=== PATIENT | female | born 1955 | race Caucasian/White ===

== ENCOUNTER → 2016-06-24 | Outpatient (CLI) | payer OTHER ==
[~2016-06-24] MED LIST: ACCUNEB DP0.63 MG/3 IH; ATROVENT SOLN.2.5 ML IH; CHANTIX0.5 MG PO; CHANTIX1 MG PO; COLACE-DPS100 MG PO; DELTASONE DPS10 MG PO; DELTASONE DPS20 MG PO; DIFLUCAN DPS150 MG PO; DULERA 200/58.8 GM IH; DUONEB DPS3 ML IH; DYCYCLOMINE PO; FLONASE 0.05% D16 GM NS; FOLVITE-DPS1 MG PO; HYDROCODON-ACE1 EAC6 PO; KLOR-CON M2020 ME1 PO; LEVAQUIN DPS500 MG PO; MAALOX DPS30 ML PO; MEGACE DPS40 MG/ML PO; MEGACE DPS800 MG/20 PO; MORPHINE SULFAT60 M1 PO; MORPHINE SULFAT60 M3 PO; MS CONTIN DPS60 MG PO; MUCINEX600 MG PO; NEURONTIN DPS300 MG PO; NICODERM CQ1 EAC1 TD; NICODERM CQ1 EAC2 TD; NORVASC DPS10 MG PO; NYSTATIN100000 UNI PO; OMNICEF DPS300 MG PO; OXY-CONTIN10 MG PO; PERCOCET 10 DPS1 TAB PO; PROAIR RESPICL90 MCG IH; PROTONIX40 MG PO; PROVENTIL HFA6.7 GM IH; QVAR8.7 GM IH; TYLENOL DPS325 MG PO; XANAX DPS0.25 MG PO
== END | disposition home or self-care (01) ==
LOC: RAD.S 07:56
DX: C34.90 Malignant neoplasm of unspecified part of unspecified bronchus or lung (principal); J98.4 Other disorders of lung; J98.11 Atelectasis; Z98.890 Other specified postprocedural states

== ENCOUNTER → 2016-06-27 | Outpatient (CLI) | payer OTHER | END | disposition home or self-care (01) | LOC: RAD.S 13:50 | PROC: 3E0 Administration, Physiological Systems and Anatomical Regions, Introduction (ICD-10-PCS; principal; 2016-06-27) | DX: C34.11 Malignant neoplasm of upper lobe, right bronchus or lung (principal); D50.9 Iron deficiency anemia, unspecified ==

== ENCOUNTER 2016-07-24 09:44 | Inpatient (IN) | payer OTHER ==
[~2016-07-24] VITALS: Ht 154.9 cm; Wt 40.6 kg
--- NOTE | 2016-07-24 21:01 | NUR ---
PT HAS INFUSAPORT WITH NS AT 100CC/HR RUNNING. NO BLOOD RETURN CAN BE OBTAINED FROM PORT. UPON INVESTIGATION SHE HAD FLEUROSCOPY DONE ON 06/27/16 TO DETERMINE IF PORT WAS IN THE CORRECT LOCATION AND THE IMPRESSION ON REPORT STATES THAT THE INFUSAPORT IS PATENT
[2016-07-28] MEDS ORDERED: XANAX DPS0.25 MG PO (16:58)
[2016-07-28] MEDS ORDERED: MORPHINE SULFAT60 M1 PO (16:58)
[2016-07-28] MEDS ORDERED: FOLVITE-DPS1 MG PO (16:59)
[2016-07-28] MEDS ORDERED: PERCOCET 10 DPS1 TAB PO (16:59)
[2016-07-28] MEDS ORDERED: NORVASC DPS10 MG PO (17:00)
[2016-07-28] MEDS ORDERED: PROTONIX40 MG PO (17:00)
[2016-07-28] MEDS ORDERED: MEGACE DPS40 MG/ML PO (17:00)
[2016-07-28] MEDS ORDERED: NEURONTIN DPS300 MG PO (17:00)
[2016-07-28] MEDS ORDERED: ACCUNEB DP0.63 MG/3 IH (17:03)
[2016-07-28] MEDS ORDERED: ATROVENT SOLN.2.5 ML IH (17:04)
[2016-07-28] MEDS ORDERED: NICODERM CQ1 EAC1 TD (17:05)
[2016-07-28] MEDS ORDERED: TYLENOL DPS325 MG PO (17:05)
[2016-07-28] MEDS ORDERED: KLOR-CON M2020 ME1 PO (17:05)
[2016-07-28] MEDS ORDERED: DELTASONE DPS10 MG PO (17:06)
[2016-07-28] MEDS ORDERED: LEVAQUIN DPS500 MG PO (17:06)
[2016-07-28] MEDS ORDERED: DIFLUCAN DPS150 MG PO (17:07)
[2016-07-28] MEDS ORDERED: QVAR8.7 GM IH (17:07)
--- NOTE | 2016-07-29 15:11 | CO ---
ADMIT: 07/24/2016 RM/LOC: [facility] MR#: [id number] 2620 [facility] [address] [place] [phone] SADE ARRIAZA [address] [id number] Consultation SEX: F AGE: 60 : 1955 DATE OF CONSULTATION: 07/25/2016 ATTENDING PHYSICIAN: Liv Banegas CONSULTING PHYSICIAN: Minnie Manuel APRN TIME IN: 0905 hours. TIME OUT: 0945 hours. REASON FOR CONSULTATION: Supportive care consultation was requested by Dr. Boo for discussion of goals for care. HISTORY OF PRESENT ILLNESS: Sade is a delightful 60-year-old female with the unfortunate history of lung cancer that was diagnosed in June of 2015. She underwent a right upper lobe lobectomy on September 07, 2015 that showed invasive poorly differentiated adenocarcinoma. She did have positive parenchymal, parietal, pleural, and chest wall margins. She has undergone chemotherapy and radiation and currently is at a point where she follows up with Oncology every few months for imaging. She had been evaluated in her primary care provider's office last week due to increasing respiratory symptoms. She was found to have pneumonia and was started on antibiotics, however she worsened, prompting her presentation to the emergency room on July 24. CT of the chest was done that showed the right pneumonia with collapsed lung as well as enlarged lymph nodes in the mediastinum. She also was shown to have severe emphysema. Due to her complexities, supportive care consultation was requested to discuss goals for care. In terms of advanced directives, the patient is a DNR status at the time of my assessment. She has not completed any sort of advanced directive paperwork. She reports that her significant other, Darren Martinez, his phone number is and [phone] as well as her daughter Gracie Garcia whose phone are the people, who are to make medical decisions for her in the event that she cannot make her own. Symptomatically, the patient reports that she is short of breath at times. Overall, she denies any other complaints. She states that her appetite is not good. She does appear fairly weak and debilitated. PAST MEDICAL HISTORY: COPD with ongoing tobacco abuse, lung cancer, osteoporosis, essential hypertension, generalized anxiety disorder, GERD, chronic pain, and nicotine dependence. ALLERGIES: THE PATIENT IS ALLERGIC TO TRAMADOL. CURRENT MEDICATIONS: Please see the patient's MAR for specific routes and dosages. Her current medications are as follows: 1. Potassium chloride. 2. Norvasc. ADMIT: 07/24/2016 RM/LOC: [facility] MR#: [id number] [address] [address] SADE ARRIAZA [address] [place] [address] Consultation SEX: F AGE: 60 : 1955 3. Protonix. 4. Megace. 5. Folvite. 6. Nitro drip. 7. Heparin. 8. Neurontin. 9. MS Contin. 10.Zosyn. 11.Atrovent. 12.Proventil. 13.Percocet. 14.Xanax. 15.Habitrol. 16.Lovenox. 17.Levaquin. 18.Maalox. 19.Tylenol. 20.Colace. 21.Nitrostat. 22.Lopressor. 23.Pulmicort. 24.Solu-Medrol. SOCIAL HISTORY: The patient lives with her significant other. They have been together around 14 years. She does not work currently. 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 She does drink a couple drinks a day of alcohol. She continues to use tobacco. FAMILY HISTORY: Reviewed and noncontributory. FUNCTIONAL REVIEW: Prior to her hospital stay, she was at home independent. She could ambulate. Her intake was normal to reduced. Her palliative performance scale prior to admission was around 80%. Currently, she is mostly sitting, but can ambulate. She is needing occasional assistance with ADLs. Her intake is reduced. Her palliative performance scale currently is around 50% to 60%. REVIEW OF SYSTEMS: A 10-point review of systems was completed and other than those pertinent positives and negatives mentioned the HPI is negative. PHYSICAL EXAMINATION: GENERAL: The patient is examined in the chair. She is in no acute distress. VITAL SIGNS: Temperature 96.7, pulse 79, respirations 20, blood pressure 122/66, and oxygen 95% on 1 L per nasal cannula. HEENT: Head is normocephalic. Pupils are 3 mm and brisk. Oral mucosa is pink and moist with fair dentition. NECK: Supple. RESPIRATORY: Respirations are equal and nonlabored. ADMIT: 07/24/2016 RM/LOC: [facility] MR#: [id number] [address] [place] [phone] SADE ARRIAZA [address] [place] [address] Consultation SEX: F AGE: 60 : 1955 LUNGS: Slightly course over the right lung field and diminished in the bases on the left. CARDIOVASCULAR: Rate and rhythm regular without murmurs, rubs, or gallops. No edema noted. GASTROINTESTINAL: Soft and nontender. Bowel sounds are positive. MUSCULOSKELETAL: Generalized weakness. No obvious joint deformities. NEUROLOGIC: Alert and oriented x3. She will follow commands. INTEGUMENTARY: Skin turgor is fair. No obvious rashes or wounds noted. PSYCHIATRIC: Calm and cooperative. No agitation or delirium noted. DIAGNOSTIC DATA: Sodium 134, potassium 3.3, BUN 13, creatinine 0.4, total protein 8.2, and albumin 2.7. WBC is 15.4, hemoglobin 8.8, hematocrit 27.3, and platelets are 717. IMPRESSION: 1. Physical debility. 2. Fatigue. 3. Malaise. 4. Moderate protein calorie malnutrition. 5. Weight loss. 6. Cachexia. 7. Right upper lobe pneumonia. 8. Chronic obstructive pulmonary disease. 9. Palliative care. 10.The patient is a DNR/DNI. PLAN OF TREATMENT: 1. I was able to meet with the patient at the bedside. She is alert and appropriate and able to participate in medical decision making. We reviewed her overall status and goals for the time ahead. She understands that she is acutely being treated for pneumonia and COPD exacerbation. In terms of her cancer, she states that she is scheduled to see Dr. Chaz kahn. She is very realistic regarding her diagnosis stating that "the cancer can come back at any time." She takes direction from Oncology in terms of her disease status and options in the time ahead. At this point, her immediate goal is to get through her current acute issues and get back home where she lives with her significant other. She does agree to ongoing discussions with supportive care in the time ahead pending her status. 2. We did review code status including the burden versus benefit of a full code status versus do not resuscitate/do not intubate status. At first, the patient does question as to whether or not, she want a breathing machine. If it were to come to that. We extensively reviewed the burden versus benefit and after discussion, she states that she would not want to go on a breathing machine even for short time period due to her overall status in terms of lung disease. She states that if she were to decompensate and it was her time to go that she would want to be kept comfortable and would forego any sort of aggressive resuscitative ADMIT: 07/24/2016 RM/LOC: [facility] MR#: [id number] [address] [address] SADE ARRIAZA [address] [place] [address] Consultation SEX: F AGE: 60 : 1955 measures including CPR defibrillation and intubation. She is comfortable with me writing the do not resuscitate/do not intubate order. She is able to verbalize in her own words back to me what her direction of DNR/DNI means. 3. In terms of advanced directives, the patient has not completed any sort of healthcare [id number]-[id number] or POLST form in the past. I did discuss healthcare iktdv-pl-wiuttyvw paperwork and she is agreeable to completing this today if possible. I will ask social work to assist with this, otherwise the Supportive Care nurse will likely return tomorrow and can assist with completion of this as well. I will also talk about a POLST form with her tomorrow and see if this is something that she would like to complete for the time ahead. We would like to thank Dr. Boo for the invitation to participate in this patient's care. Total consultation time was 40 minutes from 0905 hours to 0945 hours with 20 minutes from 0910 hours to 0930 hours spent [id number] with the patient discussing goals for care and providing counseling and support. We will continue to follow along in the care of this margarito patient. Minnie Manuel APRN/ laura JOB #: [id number] CC: Liv Banegas, Attending Physician Liv Banegas, Family Physician
--- NOTE | 2016-08-03 09:41 | ER ---
ADMIT: 07/24/2016 RM/LOC: 432 [facility] MR#: [id number] 2620 [facility] [address] [place] [id number] SADE ARRIAZA [address] [facility] [place] [address] Emergency Room Report SEX: F AGE: 60 : 1955 DATE: 07/24/2016 ADDENDUM: CHIEF COMPLAINT: Shortness of breath. HISTORY OF PRESENT ILLNESS: This is a 60-year-old, who said she has felt short of breath since Monday. She was seen at her doctor's office yesterday and was placed on antibiotic, steroid, inhalers. It sounds like she was even given injection of antibiotics, but she is not sure of the names. She comes today because she has not really ate or drank anything for the last 2 days. She is very weak, increased shortness of breath, just really could not do anything at home on her own. PAST MEDICAL HISTORY: Lung cancer with lobectomy, tubal ligation. MEDICATIONS: Unknown at this time. She is a poor historian. She does not know the pharmacy was closed. ALLERGIES: SHE BELIEVES TO TRAMADOL. I CALLED [facility]. THEY THINK BIAXIN. SOCIAL HISTORY: Denies any drug or alcohol use, but still smoke six cigarettes a day. FAMILY HISTORY: Noncontributory. REVIEW OF SYSTEMS: CONSTITUTIONAL: Denies any fevers, but has had some chills that she has been having to use electric blanket at home. CARDIOVASCULAR/RESPIRATORY: Denies any pain, but says she is extremely short of breath. Does have a cough. GI/: Denies any nausea, vomiting, diarrhea, or abdominal pain. All systems otherwise negative. PHYSICAL EXAMINATION: VITAL SIGNS: Blood pressure is 142/66, pulse 160, respirations 26, temperature is 97.6 tympanic, saturation of oxygen is 100% on 3 L which she normally uses. GENERAL APPEARANCE: The patient is in vlkp-kp-ircjxaye distress. Looks very malnourished. HEENT: Her pharynx is very dry. Her TMs are non-erythemic bilateral. NECK: Supple. HEART: Very tachycardic at a rate from 150s to 160s. LUNGS: Decreased bilateral. I am not able to hear really any wheezes or rhonchi. ABDOMEN: Soft and nontender. SKIN: She is very pale, almost ashened a little bit, but no rashes noted. NEURO/PSYCH: She is alert and oriented x3. Mood and affect normal. ADMIT: 07/24/2016 RM/LOC: 432 [facility] MR#: [id number] [address] [address] SADE ARRIAZA [address] [place] [address] Emergency Room Report SEX: F AGE: 60 : 1955 COURSE IN THE EMERGENCY ROOM: Sepsis protocol was ordered with the fluids, and Zosyn was started down here in the emergency room. At this time, CTA is pending of her chest. I will call Dr. Boo with those results. Dr. Boo was contacted. He came down to the ER at 1155 hours and admitted the patient. LABORATORY DATA: Results from labs: EKG showed a rate of 153 at sinus tach. No ST elevation or depression. Urine was normal except for 1+ ketones, 1+ protein. Her ABGs showed a pH of 7.45, pCO2 was 28.7, pO2 is 59. CBC is normal except for white count of 26.9, hemoglobin 11.6, platelets 860. Lactic acid is 1.9. CMP is normal except for sodium 131, potassium 3.3, chloride 93, BUN elevated at 27, but creatinine is normal at 0.6, glucose 135, albumin low at 2.7.. Cardiac enzymes are normal. Procalcitonin is elevated at 4.39. PTT and INR are normal. Chest x-ray that was over-read by Dr. Joseph, questionable infiltrate on the right side. CLINICAL IMPRESSION: 1. Sepsis. 2. Right-sided pneumonia. 3. Tachycardia. 4. Dehydration. CTA pending at this time. PE is not ruled out. DISPOSITION: She is stable at admit. YASMANY Cota / Twan Joseph MD / laura JOB #: [id number] CC: Liv Banegas MD, Attending Physician Liv Banegas MD, Family Physician
--- NOTE | 2016-08-04 09:47 | DS ---
ADMIT: 07/24/2016 RM/LOC: 432 [facility] MR#: [id number] 2620 [facility] [address] [place] [phone] SADE ARRIAZA [address] [facility] [place] [address] Discharge Summary SEX: F AGE: 60 : 1955 ADMISSION DATE: 07/24/2016 DISCHARGE DATE: 07/27/2016 FINAL DIAGNOSES: 1. Right upper lobe pneumonia in a patient with structural lung disease secondary to lobectomy for cancer and secondary to COPD (chronic obstructive pulmonary disease). 2. Chronic weakness and weight loss related to COPD (chronic obstructive pulmonary disease) and cancer. 3. Chronic hypertension. 4. Gastroesophageal reflux. HOSPITAL COURSE: Sade came in with hypoxia and shortness of breath and was admitted and found to have right-sided pneumonia. CTA showed no pulmonary emboli. She was started on Zosyn and Levaquin as well as IV steroids and pulmonary toilet. Lovenox was used for VTE prophylaxis. We continued her usual 3 L of O2. Over the course of 48 hours, she had pretty dramatic improvement. She was admitted on 07/24/2016. By 07/26/2016, she was feeling much better with more tolerance of activity. She was up walking in the halls and on 2 L of O2 her saturations remained about 89-90%. Supportive Care did see her and she wants DNR/DNI status, but wants to continue aggressive treatments for her infections and medical treatments as she can tolerate for her cancer. She will be dismissed home on Levaquin 500 mg daily for 5 more days. She also had yeast on the sputum culture and some normal dangelo. Blood cultures and urine cultures were all negative. DISCHARGE MEDICATIONS: 1. Levaquin 500 mg daily for 5 more days. 2. Prednisone 40 mg starting on 07/28 and 07/29 and then 20 mg daily for 5 days, then 10 mg daily for 5 days, then stop. 3. Fluconazole 150 mg to give one dose today before she leaves and another dose on 07/29, 07/31, and 08/02 and then stop. 4. She will continue her O2 at 2-3 L nasal cannula. She can leave it at 2 when she is at rest but she can also turn it up to 3 if needed. When she is up ambulating she should wear 3 L. 5. Folvite 1 mg daily. 6. Potassium 20 mEq b.i.d. 7. Megace 800 mg per 20 mL and take 20 mL daily. ADMIT: 07/24/2016 RM/LOC: 432 [facility] MR#: [id number] [address] [address] SADE ARRIAZA [address] [place] [address] Discharge Summary SEX: F AGE: 60 : 1955 8. MS Contin 60 mg every 8 hours. 9. Neurontin 300 mg t.i.d. 10.Norvasc 10 mg daily. 11.Protonix 40 mg daily. 12.Habitrol 7 mg. If she starts to smoke again she needs to take that off and she is aware. 13.She also has Percocet, Tylenol and Xanax as needed. 14.She will use her Atrovent every 8 hours for the next five days and then back down to p.r.n. DISCHARGE INSTRUCTIONS: I will see her back in about 7-14 days and she has an appointment with Oncology on August 08 that is already set. Liv Banegas MD/ anna JOB #: [id number] CC: Liv Banegas MD, Attending Physician Liv Banegas MD, Family Physician
--- NOTE | 2016-08-09 08:26 | HP ---
ADMIT: 07/24/2016 RM/LOC: 432 [facility] MR#: [id number] [address] [address] SADE ARRIAZA [address] [place] [address] [place] [address] History and Physical SEX: F AGE: 60 : 1955 DATE OF SERVICE: CHIEF COMPLAINT: Increasing shortness of breath. HISTORY OF PRESENT ILLNESS: Sade is a 60-year-old female, follows with Dr. Banegas in our clinic, established care in June last year, presents to the Emergency Department with complaints of increased shortness of breath and fatigue. The patient was actually just seen in our clinic yesterday by Lucia Nelson, diagnosed with pneumonia. Given Rocephin and sent home. The patient feels that over the last 24 hours, she has worsened, therefore she presented to the Emergency Department for further workup and management here. In regard to the ER course, she was found to be hypoxic. Started on oxygen. The patient does have a history of lung cancer. She did have a CT which showed no PE, but did show pneumonia. Also found to be tachycardic with heart rate in the 140s to 150s. She was given diltiazem to try to help slow that down. We were asked to admit the patient for further workup and management of her COPD exacerbation, pneumonia. The patient not found to be septic at this time. PAST MEDICAL HISTORY: Includes: 1. COPD with continued smoking. 2. Lung cancer with adenocarcinoma of the lung, diagnosed in June 2015 with a right upper lobe lesion. On 09/07/2015, she had a right upper lobe lobectomy which showed invasive poorly differentiated adenocarcinoma grade 3 with pT3, pN0 stage IIB with positive parenchymal and parietal pleural and chest wall margins. She has undergone chemo and radiation. 3. Osteoporosis. 4. Essential hypertension. 5. Generalized anxiety disorder. 6. Gastroesophageal reflux disease. 7. Chronic pain. 8. Nicotine dependence. MEDICATIONS: Include; 1. Amlodipine. 2. Bentyl. 3. MS Contin. 4. Neurontin. 5. Pantoprazole. 6. Percocet. 7. Ventolin. ALLERGIES: TRAMADOL. PAST SURGICAL HISTORY: 1. Tonsillectomy. 2. Tubal ligation. 3. Right lobectomy as noted above. ADMIT: 07/24/2016 RM/LOC: 432 [facility] MR#: [id number] [address] [facility] [address] [place] [phone] SADE ARRIAZA [address] [place] [address] History and Physical SEX: F AGE: 60 : 1955 FAMILY HISTORY: Noncontributory. SOCIAL HISTORY: The patient continues to smoke about half pack per day. Garrett is her significant other for 14 years and will make medical decisions if she is unable. She does not work any longer. 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 Drinks about two drinks per day. REVIEW OF SYSTEMS: A 10-point review of systems obtained, per HPI otherwise negative. PHYSICAL EXAMINATION: VITAL SIGNS: Blood pressure 149/81, pulse 151, 85% on 3 L, respirations 22. GENERAL: Alert and oriented x3. No acute distress. Appears a little anxious. Mild increased work of breathing. HEENT: Pupils equal, round, and reactive. Extraocular muscles intact. Throat clear. Trachea midline. No carotid bruits. HEART: Tachycardic. LUNGS: Decreased breath sounds bilaterally with few scattered wheezes. ABDOMEN: Soft, nontender, and nondistended. No organomegaly. EXTREMITIES: Without any significant edema. NEUROLOGIC: Intact. No focal deficits. In general, she does appear cachectic. LABORATORY DATA: Blood cultures obtained, pending. White blood count 26.9, hemoglobin 11.6, platelet count 60, segs 85%, bands 8%. CMP; sodium 131, potassium 3.3, glucose 135, creatinine 0.6. AST and ALT are normal. Magnesium 2.3. Cardiac enzymes are negative x3 sets. Lactic acid normal at 1.9. Procalcitonin 4.39. Arterial blood gas shows pH 7.4, pCO2 of 28.7, pO2 of 59. Urinalysis 1+ protein, 1+ ketones, otherwise normal. Chest x-ray shows right upper lobe opacities. Postoperative changes. ASSESSMENT: A 60-year-old female with. 1. Acute respiratory distress with hypoxia. 2. Right-sided pneumonia, community acquired. 3. Sepsis. 4. Hypoxemia. 5. Tachycardia, likely secondary to infection. 6. Chronic obstructive pulmonary disease exacerbation. ADMIT: 07/24/2016 RM/LOC: 432 [facility] MR#: [id number] [address] [address] SADE ARRIAZA [address] [place] [address] History and Physical SEX: F AGE: 60 : 1955 7. History of lung cancer, post resection radiation chemotherapy, following with Oncology. 8. Nicotine dependence with continued nicotine use. 9. Hypertension. PLAN: We will admit patient to PCU status. Sepsis protocol. Antibiotics, fluids, pulmonary support. Monitor closely. Progresses may need to consider in the patient. At this point, she seems stable. Greater than 35 minutes spent with overall patient care. Greater than 25 minutes of hqhb-fu-oawy contact. The patient is in stable condition, but slightly critical. Alessandro Boo MD/ laura JOB #: [id number] CC: Liv Banegas, Attending Physician Liv Banegas, Family Physician
[2016-09-01] MEDS ORDERED: DUONEB DPS3 ML IH (11:39)
[2016-09-01] MEDS ORDERED: DYCYCLOMINE PO (11:43)
[2016-09-01] MEDS ORDERED: CHANTIX0.5 MG PO (11:44)
[2016-10-10] MEDS ORDERED: QVAR8.7 GM IH (17:18)
[2016-10-10] MEDS ORDERED: MEGACE DPS40 MG/ML PO (17:18)
[2016-10-10] MEDS ORDERED: NORVASC DPS10 MG PO (17:19)
[2016-10-10] MEDS ORDERED: NEURONTIN DPS300 MG PO (17:19)
[2016-10-10] MEDS ORDERED: PERCOCET 10 DPS1 TAB PO (17:19)
[2016-10-10] MEDS ORDERED: KLOR-CON M2020 ME1 PO (17:20)
[2016-10-10] MEDS ORDERED: PROTONIX40 MG PO (17:20)
[2016-10-10] MEDS ORDERED: FOLVITE-DPS1 MG PO (17:21)
[2016-10-10] MEDS ORDERED: XANAX DPS0.25 MG PO (17:21)
[2016-10-10] MEDS ORDERED: MORPHINE SULFAT60 M3 PO (17:22)
[2016-10-10] MEDS ORDERED: NICODERM CQ1 EAC2 TD (17:23)
[2016-10-10] MEDS ORDERED: PROVENTIL HFA6.7 GM IH (17:23)
[2016-10-10] MEDS ORDERED: CHANTIX1 MG PO (17:23)
[2016-10-10] MEDS ORDERED: OMNICEF DPS300 MG PO (17:24)
[2016-10-10] MEDS ORDERED: DELTASONE DPS10 MG PO (17:24)
[2016-10-10] MEDS ORDERED: COLACE-DPS100 MG PO (17:25)
[2016-10-10] MEDS ORDERED: DUONEB DPS3 ML IH (17:25)
[2016-10-10] MEDS ORDERED: MAALOX DPS30 ML PO (17:25)
[2016-10-10] MEDS ORDERED: TYLENOL DPS325 MG PO (17:26)
[2016-10-16] MEDS ORDERED: MEGACE DPS800 MG/20 PO (11:30)
[2016-10-16] MEDS ORDERED: QVAR8.7 GM IH (11:30)
[2016-10-16] MEDS ORDERED: OXY-CONTIN10 MG PO (11:31)
[2016-10-16] MEDS ORDERED: NORVASC DPS10 MG PO (11:31)
[2016-10-16] MEDS ORDERED: NEURONTIN DPS300 MG PO (11:32)
[2016-10-16] MEDS ORDERED: FOLVITE-DPS1 MG PO (11:32)
[2016-10-16] MEDS ORDERED: KLOR-CON M2020 ME1 PO (11:32)
[2016-10-16] MEDS ORDERED: PROTONIX40 MG PO (11:32)
[2016-10-16] MEDS ORDERED: XANAX DPS0.25 MG PO (11:32)
[2016-10-16] MEDS ORDERED: PROAIR RESPICL90 MCG IH (11:33)
[2016-10-16] MEDS ORDERED: CHANTIX1 MG PO (11:33)
[2016-10-16] MEDS ORDERED: MS CONTIN DPS60 MG PO (11:33)
[2016-10-16] MEDS ORDERED: NICODERM CQ1 EAC1 TD (11:34)
[2016-10-16] MEDS ORDERED: OMNICEF DPS300 MG PO (11:34)
[2016-10-16] MEDS ORDERED: DUONEB DPS3 ML IH (11:35)
[2016-10-16] MEDS ORDERED: MAALOX DPS30 ML PO (11:35)
[2016-10-16] MEDS ORDERED: COLACE-DPS100 MG PO (11:35)
[2016-10-16] MEDS ORDERED: TYLENOL DPS325 MG PO (11:36)
[2016-10-16] MEDS ORDERED: DELTASONE DPS10 MG PO (11:37)
[2016-10-16] MEDS ORDERED: DELTASONE DPS20 MG PO (11:37)
[2016-10-16] MEDS ORDERED: LEVAQUIN DPS500 MG PO (11:37)
[2016-10-16] MEDS ORDERED: DULERA 200/58.8 GM IH (11:38)
[2016-12-17] MEDS ORDERED: DUONEB DPS3 ML IH (15:27)
[2016-12-17] MEDS ORDERED: MUCINEX600 MG PO (15:31)
[2016-12-17] MEDS ORDERED: HYDROCODON-ACE1 EAC6 PO (15:31)
[2016-12-17] MEDS ORDERED: NYSTATIN100000 UNI PO (15:33)
[2016-12-21] MEDS ORDERED: FLONASE 0.05% D16 GM NS (06:53)
== END 2016-07-27 12:10 | disposition home or self-care (01) | DRG 190 ==
LOC: ER 09:44 → 4PCU 11:55
PROVIDERS: ADMIT Family Medicine
DX: J44.0 Chronic obstructive pulmonary disease with (acute) lower respiratory infection (principal); J18.9 Pneumonia, unspecified organism; J96.01 Acute respiratory failure with hypoxia; B37.89 Other sites of candidiasis; E44.0 Moderate protein-calorie malnutrition; C34.91 Malignant neoplasm of unspecified part of right bronchus or lung; E87.6 Hypokalemia; J44.1 Chronic obstructive pulmonary disease with (acute) exacerbation; E86.0 Dehydration; F17.210 Nicotine dependence, cigarettes, uncomplicated; M81.0 Age-related osteoporosis without current pathological fracture; I10 Essential (primary) hypertension; F41.1 Generalized anxiety disorder; K21.9 Gastro-esophageal reflux disease without esophagitis; G89.29 Other chronic pain; Z66 Do not resuscitate

== ENCOUNTER → 2016-08-08 | Outpatient (CLI) | payer OTHER | END | disposition home or self-care (01) | LOC: PTH.S 08:54 | DX: C34.11 Malignant neoplasm of upper lobe, right bronchus or lung (principal); D50.9 Iron deficiency anemia, unspecified; J18.9 Pneumonia, unspecified organism; Z98.890 Other specified postprocedural states ==

== ENCOUNTER 2016-08-28 09:19 | Inpatient (IN) | payer OTHER ==
[~2016-08-28] VITALS: Ht 152.4 cm; Wt 37.7 kg
[~2016-08-28 09:19] MED LIST changes: -CHANTIX0.5 MG PO; -CHANTIX1 MG PO; -COLACE-DPS100 MG PO; -DELTASONE DPS20 MG PO; -DULERA 200/58.8 GM IH; -DUONEB DPS3 ML IH; -DYCYCLOMINE PO; -FLONASE 0.05% D16 GM NS; -HYDROCODON-ACE1 EAC6 PO; -MAALOX DPS30 ML PO; -MEGACE DPS800 MG/20 PO; -MORPHINE SULFAT60 M3 PO; -MS CONTIN DPS60 MG PO; -MUCINEX600 MG PO; -NICODERM CQ1 EAC2 TD; -NYSTATIN100000 UNI PO; -OMNICEF DPS300 MG PO; -OXY-CONTIN10 MG PO; -PROAIR RESPICL90 MCG IH; -PROVENTIL HFA6.7 GM IH
--- NOTE | 2016-08-28 15:09 | ER ---
ADMIT: 08/28/2016 RM/LOC: ER [facility] MR#: [id number] 2620 [facility] [address] [place] [phone] ARRIAZASADE FITZGERALD [address] [facility] [place] [address] Emergency Room Report SEX: F AGE: 60 : 1955 DATE: 08/28/2016 ADDENDUM: This 60-year-old white female, has lung cancer, status post lobectomy and COPD, continues to smoke, coming in with tachycardia and more evidently more short of breath too. Chest x-ray appears to be a recurrence of her pneumonia. White count 14.8, hemoglobin is 8.7, lactic, however, is 0.4 so she is a pneumonia, rule out sepsis at this time. We follow the sepsis protocol. She did not need any fluids nor did she make criteria at this time for that. She received Zosyn and vanc here. CONDITION ON ADMISSION: Serious. I spoke with Dr. Boo. He will admit. Golden Frank MD/ laura JOB #: [id number] CC: Golden Frank MD, Attending Physician Liv Banegas MD, Family Physician
[2016-09-01] MEDS ORDERED: DUONEB DPS3 ML IH (11:39)
[2016-09-01] MEDS ORDERED: DYCYCLOMINE PO (11:43)
[2016-09-01] MEDS ORDERED: CHANTIX0.5 MG PO (11:44)
--- NOTE | 2016-09-05 08:14 | HP ---
ADMIT: 08/28/2016 RM/LOC: 424 [facility] MR#: [id number] [address] [address] SADE ARRIAZA [address] [place] [id number] History and Physical SEX: F AGE: 60 : 1955 DATE OF SERVICE: CHIEF COMPLAINT: Increasing shortness of breath. HISTORY OF PRESENT ILLNESS: Sade is a 60-year-old female, who normally follows with Dr. Banegas in our clinic, established care in June of last year, who presents to emergency department with complaints of increased shortness of breath and fatigue. The patient was admitted at the end of June earlier this year with pneumonia. The patient discharged after aggressive treatment pulmonary toilet. She states that this feels very similar. She is normally on 3 L oxygen, when she arrived to the emergency department, she was requiring 4 L. She just feels tired and very fatigued. She does have end- stage COPD. She continues to smoke. In regard to other ER course, she was found to be hypoxic. She does have a history of lung cancer. Chest x-ray appeared to be stable, but the ER physician felt that there may be start of a pneumonia. She was tachycardic, which is normal for her. She did not meet sepsis criteria. She was given IV Zosyn and vancomycin with her given recent hospitalization. PAST MEDICAL HISTORY: 1. COPD with continued smoking. 2. Lung cancer with adenocarcinoma of the lung, diagnosed in June 2015 with right upper lobe lesion. On 09/07/2015, she had a right upper lobe lobectomy, which showed invasive poorly differentiated adenocarcinoma grade 3 with pT3, pN0, stage IIB with positive parenchymal and parietal pleural and chest wall margins. She has undergone chemo and radiation. 3. Osteoporosis. 4. Essential hypertension. 5. Generalized anxiety disorder. 6. Gastroesophageal reflux. 7. Chronic pain. 8. Nicotine dependence. MEDICATIONS: Please refer hospital record. ALLERGIES: TRAMADOL. PAST SURGICAL HISTORY: Tonsillectomy, tubal ligation, right upper lobe lobectomy as noted above. FAMILY HISTORY: Noncontributory. SOCIAL HISTORY: The patient continues to smoke about half pack per day. Darren is a significant other of 14 years and would make medical decisions for her if she is unable. She no longer works. 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 Drinks about 2 drinks per day. REVIEW OF SYSTEMS: A 10-point review of systems obtained, per HPI otherwise ADMIT: 08/28/2016 RM/LOC: 424 [facility] MR#: [id number] 2620 [facility] [address] [place] [phone] SADE ARRIAZA [address] [place] [address] History and Physical SEX: F AGE: 60 : 1955 negative. PHYSICAL EXAMINATION: VITAL SIGNS: Blood pressure 135/63, pulse 80, respirations 18, temperature 97.3, she is 99% on 4 L. GENERAL: Alert and oriented x3. Does not appear toxic. Does not appear in acute distress. Does appear fatigued. She does appear cachectic. HEENT: Pupils equal, round, and reactive. Extraocular muscles intact. Throat clear. Trachea midline. HEART: Tachycardic. No murmurs. LUNGS: Decreased breath sounds bilaterally. Few scattered wheezes. ABDOMEN: Soft, nontender, and nondistended. No organomegaly. EXTREMITIES: No significant edema. NEUROLOGIC: Intact. No focal deficits. SKIN: No significant changes. LABORATORY DATA: White blood count slightly elevated at 14,800. Hemoglobin stable at 8.7. Platelet count elevated at 762. Blood cultures obtained pending. CMP shows a potassium of 3.6. Glucose 110. Inorganic phosphorus 2.1. Albumin 2.9. Magnesium 1.9. Cardiac enzymes negative. Her procalcitonin was 0.14. Lactic acid. 0.6. UA was hazy, 1+ ketones, otherwise negative. Chest x-ray over-read showed stable postoperative chest. ASSESSMENT: This is a 60-year-old female with: 1. Possible early healthcare acquired pneumonia. 2. Acute on chronic respiratory distress with hypoxia. 3. Hypoxemia. 4. Tachycardia, chronic secondary to chronic obstructive pulmonary disease. 5. Chronic obstructive pulmonary disease exacerbation. 6. Nicotine dependence. ADMIT: 08/28/2016 RM/LOC: 424 [facility] MR#: [id number] 2620 [facility] [address] [place] [phone] SADE ARRIAZA [address] [place] [phone] History and Physical SEX: F AGE: 60 : 1955 7. History of lung cancer post right upper lobe lobectomy, radiation chemotherapy. Follows with Oncology. 8. Hypertension. PLAN: We will admit the patient to telemetry. She may continue on antibiotics. Pulmonary support and aggressive pulmonary toilet. Monitor closely. Overall, long-term prognosis is very poor for this patient as her lungs are quite poor, and she continues to smoke. Lovenox for DVT prophylaxis. Dr. Banegas was in patient care in the morning. Alessandro Boo MD/ laura JOB #: [id number] CC: Liv Banegas, Attending Physician Liv Banegas, Family Physician
[2016-10-10] MEDS ORDERED: MEGACE DPS40 MG/ML PO (17:18)
[2016-10-10] MEDS ORDERED: QVAR8.7 GM IH (17:18)
[2016-10-10] MEDS ORDERED: PERCOCET 10 DPS1 TAB PO (17:19)
[2016-10-10] MEDS ORDERED: NEURONTIN DPS300 MG PO (17:19)
[2016-10-10] MEDS ORDERED: NORVASC DPS10 MG PO (17:19)
[2016-10-10] MEDS ORDERED: KLOR-CON M2020 ME1 PO (17:20)
[2016-10-10] MEDS ORDERED: PROTONIX40 MG PO (17:20)
[2016-10-10] MEDS ORDERED: FOLVITE-DPS1 MG PO (17:21)
[2016-10-10] MEDS ORDERED: XANAX DPS0.25 MG PO (17:21)
[2016-10-10] MEDS ORDERED: MORPHINE SULFAT60 M3 PO (17:22)
[2016-10-10] MEDS ORDERED: PROVENTIL HFA6.7 GM IH (17:23)
[2016-10-10] MEDS ORDERED: CHANTIX1 MG PO (17:23)
[2016-10-10] MEDS ORDERED: NICODERM CQ1 EAC2 TD (17:23)
[2016-10-10] MEDS ORDERED: DELTASONE DPS10 MG PO (17:24)
[2016-10-10] MEDS ORDERED: OMNICEF DPS300 MG PO (17:24)
[2016-10-10] MEDS ORDERED: MAALOX DPS30 ML PO (17:25)
[2016-10-10] MEDS ORDERED: DUONEB DPS3 ML IH (17:25)
[2016-10-10] MEDS ORDERED: COLACE-DPS100 MG PO (17:25)
[2016-10-10] MEDS ORDERED: TYLENOL DPS325 MG PO (17:26)
--- NOTE | 2016-10-13 07:54 | DS ---
ADMIT: 08/30/2016 RM/LOC: 424 [facility] MR#: [id number] 2620 [facility] [address] [place] [phone] SADE ARRIAZA [address] [place] [address] General Discharge Summary SEX: F AGE: 60 : 1955 ADMISSION DATE: 08/30/2016 DISCHARGE DATE: 08/31/2016 FINAL DIAGNOSES: 1. Healthcare-acquired pneumonia. 2. Gxfpa-zz-bfoybat respiratory failure. 3. Chronic obstructive pulmonary disease with exacerbation. 4. Nicotine dependence. 5. Lung cancer, status post right upper lobectomy. 6. Chronic hypertension. Sade was admitted with increasing hypoxia, work of breathing, and cough. She had no fever on admission, but had increased sputum production, increasing shortness of breath, and evidence of early pneumonia on the x-ray. She was started on vancomycin and Zosyn IV as well as nebulizer treatments. Lovenox was used for VTE prophylaxis. The antibiotic choices were based on her complicated history with structural lung disease, COPD, cancer, and lobectomy in the past. She also had a recent hospital stay less than a month ago and has chronic malnutrition. By day two, she was able to breathe more easily. She did spike fevers, but not higher than 101. Physical and Occupational Therapy saw the patient to help with strengthening. Social Work also saw the patient and the patient said she plans to go home at discharge and denied any needs. On 08/30, her antibiotic coverage was switched to stop the vancomycin and switched to Levaquin. On 08/31, hemoglobin was 7.3. She had received IV fluids. There was some dilutional effect, but she has low iron chronically and poor tolerance for oral iron. Based on her chronic malnutrition and chronic lung disease, I did elect to give her IV Venofer. After the Venofer was infused, the patient was dismissed home. DISCHARGE MEDICATIONS: On dismissal, medications are tapering dose of steroids with prednisone 30 mg daily for three days, then 20 mg for three days, then 10 mg for three days, and then stop. She will also finish out Levaquin 500 mg daily through 09/07/2016. She is starting on Chantix 0.5 mg daily for three days and then up to b.i.d. for four days and then 1 mg b.i.d. for a total of 12 weeks. She was instructed to quit smoking after the first week of the Chantix. She will continue to wear her oxygen at 2 L at rest and she bumped up to 4 L per nasal cannula as needed with activity. Other medications are: 1. Folvite 1 mg daily. 2. Potassium 20 mEq b.i.d. 3. Megace 800 mg daily. 4. MS Contin 60 mg every 8 hours. 5. Neurontin 300 mg t.i.d. ADMIT: 08/30/2016 RM/LOC: 424 [facility] MR#: [id number] [address] [place] [phone] SADE ARRIAZA [address] [place] [address] General Discharge Summary SEX: F AGE: 60 : 1955 6. Norvasc 10 mg daily. 7. Protonix 40 mg daily. 8. QVAR 80 mcg b.i.d. one inhalation. 9. DuoNeb through a nebulizer four times a day. 10.She also has Bentyl, Percocet 10/325 every 4 hours p.r.n., Tylenol, Xanax, and additional DuoNebs as needed. 11.She takes alprazolam 0.25 mg every 6 hours as needed and she can use the Habitrol patch 7 mg if needed as well. CODE STATUS: Do not resuscitate/do not intubate. No vaccines were given on this hospital stay. She will follow up with myself in about a week in the office. Liv Banegas MD/ laura JOB #: [id number] CC: Liv Banegas MD, Attending Physician Liv Banegas MD, Family Physician
[2016-10-16] MEDS ORDERED: QVAR8.7 GM IH (11:30)
[2016-10-16] MEDS ORDERED: MEGACE DPS800 MG/20 PO (11:30)
[2016-10-16] MEDS ORDERED: NORVASC DPS10 MG PO (11:31)
[2016-10-16] MEDS ORDERED: OXY-CONTIN10 MG PO (11:31)
[2016-10-16] MEDS ORDERED: XANAX DPS0.25 MG PO (11:32)
[2016-10-16] MEDS ORDERED: NEURONTIN DPS300 MG PO (11:32)
[2016-10-16] MEDS ORDERED: KLOR-CON M2020 ME1 PO (11:32)
[2016-10-16] MEDS ORDERED: FOLVITE-DPS1 MG PO (11:32)
[2016-10-16] MEDS ORDERED: PROTONIX40 MG PO (11:32)
[2016-10-16] MEDS ORDERED: CHANTIX1 MG PO (11:33)
[2016-10-16] MEDS ORDERED: MS CONTIN DPS60 MG PO (11:33)
[2016-10-16] MEDS ORDERED: PROAIR RESPICL90 MCG IH (11:33)
[2016-10-16] MEDS ORDERED: NICODERM CQ1 EAC1 TD (11:34)
[2016-10-16] MEDS ORDERED: OMNICEF DPS300 MG PO (11:34)
[2016-10-16] MEDS ORDERED: MAALOX DPS30 ML PO (11:35)
[2016-10-16] MEDS ORDERED: COLACE-DPS100 MG PO (11:35)
[2016-10-16] MEDS ORDERED: DUONEB DPS3 ML IH (11:35)
[2016-10-16] MEDS ORDERED: TYLENOL DPS325 MG PO (11:36)
[2016-10-16] MEDS ORDERED: DELTASONE DPS20 MG PO (11:37)
[2016-10-16] MEDS ORDERED: LEVAQUIN DPS500 MG PO (11:37)
[2016-10-16] MEDS ORDERED: DELTASONE DPS10 MG PO (11:37)
[2016-10-16] MEDS ORDERED: DULERA 200/58.8 GM IH (11:38)
[2016-12-17] MEDS ORDERED: DUONEB DPS3 ML IH (15:27)
[2016-12-17] MEDS ORDERED: MUCINEX600 MG PO (15:31)
[2016-12-17] MEDS ORDERED: HYDROCODON-ACE1 EAC6 PO (15:31)
[2016-12-17] MEDS ORDERED: NYSTATIN100000 UNI PO (15:33)
[2016-12-21] MEDS ORDERED: FLONASE 0.05% D16 GM NS (06:53)
== END 2016-08-31 11:05 | disposition home or self-care (01) | DRG 192 ==
LOC: ER 09:19 → 4PCU 11:00
PROVIDERS: ADMIT Family Medicine
DX: J44.1 Chronic obstructive pulmonary disease with (acute) exacerbation (principal); I10 Essential (primary) hypertension; D64.9 Anemia, unspecified; M81.0 Age-related osteoporosis without current pathological fracture; G89.29 Other chronic pain; K21.9 Gastro-esophageal reflux disease without esophagitis; Z85.118 Personal history of other malignant neoplasm of bronchus and lung; F17.210 Nicotine dependence, cigarettes, uncomplicated; Z88.6 Allergy status to analgesic agent

== ENCOUNTER 2016-12-11 14:12 | Inpatient (IN) | payer OTHER ==
[~2016-12-11] VITALS: Ht 152.4 cm; Wt 38.5 kg
--- NOTE | ~2016-12-11 | HP ---
ADMIT: 12/11/2016 RM/LOC: 410 [facility] MR#: [id number] [address] [facility] [address] [place] [phone] SADE ARRIAZA [address] [facility] [place] [address] History and Physical SEX: F AGE: 61 : 1955 DATE OF SERVICE: CHIEF COMPLAINT: Shortness of breath and cough. HISTORY OF PRESENT ILLNESS: This is a 61-year-old, white female, normally cared for by Dr. Banegas in our office, who presented to the emergency room with shortness of breath. She stated it started last night. She developed a cough which has been nonproductive and some shortness of breath. She has had pneumonia in the past and she was concerned that she was starting to develop some pneumonia and she started to feel worse as the day went on. Today, so subsequently she went to the emergency room, ultimately, where she was found to meet sepsis criteria, and CTA of her chest was done which did reveal bilateral lower lobe infiltrates. Therefore, she is admitted for pneumonia and sepsis. PAST MEDICAL HISTORY: Remarkable for COPD, hypertension, malnutrition, osteoporosis, generalized anxiety disorder, gastroesophageal reflux disease, chronic pain. She has adenocarcinoma of lung with status post right upper lobectomy. PAST SURGICAL HISTORY: Other surgeries include tubal ligation and tonsillectomy. CURRENT MEDICATIONS: Include: 1. Megace 15-20 mL p.o. daily. 2. QVAR 80 mcg one puff b.i.d. 3. Percocet 10 q.4 h. p.r.n. 4. Amlodipine 10 mg daily. 5. Gabapentin 300 mg t.i.d. 6. Pantoprazole 40 mg daily. 7. KCl 20 mEq b.i.d. 8. Alprazolam 0.25 mg t.i.d. 9. Folic acid 1 mg daily. 10.Morphine ER 60 mg b.i.d. 11.Ventolin 2-3 puffs q.2 h. p.r.n. 12.DuoNeb treatment q.4 h. p.r.n. 13.Colace 100 mg b.i.d. p.r.n. 14.Maalox 30 mL q.6 h. p.r.n. 15.Tylenol 650 mg q.4 h. p.r.n. 16.Dulera one puff b.i.d. ALLERGIES: TRAMADOL. SOCIAL HISTORY: Does not smoke. Occasional alcohol use. She currently is not working. FAMILY HISTORY: Father of prostate cancer. Mother of breast cancer. ADMIT: 12/11/2016 RM/LOC: 410 [facility] MR#: [id number] [address] [address] SADE ARRIAZA [address] [place] [address] History and Physical SEX: F AGE: 61 : 1955 REVIEW OF SYSTEMS: GENERAL: No fevers or chills. HEENT: No headaches, blurry vision, or double vision. CARDIAC: No chest pains. PULMONARY: As per HPI. GI: No nausea, vomiting, or diarrhea. : No dysuria, urgency, or frequency. ENDOCRINE: No polyuria or polydipsia. PSYCH: History of anxiety which is stable. All others are negative. PHYSICAL EXAMINATION: VITAL SIGNS: Blood pressure is 123/82, pulse 108, respirations 20, temp 93, MAP of 95. GENERAL: She is in no acute distress. She is alert, but drowsy. She answers questions appropriately. HEENT: Pupils are reactive. Conjunctivae clear. NECK: Soft and supple. LUNGS: With decreased breath sounds. Crackles in both bases and occasional wheeze. HEART: Regular. Slightly tachycardic. ABDOMEN: Soft. It is nontender. EXTREMITIES: No cyanosis. No clubbing. No edema. SKIN: No rashes. NEUROLOGIC: Cranial nerves II through XII grossly intact. No focal deficits. LAB/X-RAY DATA: [place] [address], hemoglobin 7.4, and platelets 518,000. Lactic acid was 2.5. Chest x-ray showed postoperative changes of the right upper quadrant. Sodium 124, potassium 4.6, chloride 91, CO2 of 24, BUN 11, creatinine 0.7, glucose 265, calcium 9.2, phosphorus 2.6, total bilirubin is 0.3, total protein 6.9, albumin 2.4, alkaline phosphatase 88, AST 8, ALT 8, magnesium 1.7. CK 76, MB 1.6, relative index 2.1. Troponin I is less than 0.015. ProBNP is 4166. Procalcitonin was 32.66. Urinalysis was negative. INR is 1.11. CTA of her chest was read out as consolidation with bronchograms in the posterior basilar segment of the left lower lobe and posterior basilar aspect of the right lower lobe consistent with bilateral pneumonia as well as COPD. ASSESSMENT: 1. Bilateral lower lobe pneumonia. 2. Chronic obstructive pulmonary disease. 3. Acute on chronic respiratory failure. 4. Lung cancer. 5. Hypertension. ADMIT: 12/11/2016 RM/LOC: [address] [place] [address] MR#: [id number] [address] [place] [phone] SADE ARRIAZA [address] [place] [address] History and Physical SEX: F AGE: 61 : 1955 6. Hyponatremia. 7. Sepsis. 8. Hypomagnesemia. 9. Generalized anxiety disorder. 10.Chronic pain. PLAN: We will admit. IV antibiotics, IV fluids, replace mag. We will gently hydrate her. Her hyponatremia is chronic, but we will monitor. We will start IV antibiotics breathing treatments. Oxygen supplementation. I did discuss code status with her, she wishes to be a full code at this time. Dr. Banegas will resume her care in the a.. Juan Betancourt MD/ laura JOB #: [id number] CC: Liv Banegas, Attending Physician Liv Banegas, Family Physician
--- NOTE | ~2016-12-11 | DS ---
ADMIT: 12/11/2016 RM/LOC: 410 [facility] MR#: [id number] 2620 [facility] [address] [place] [phone] SADE ARRIAZA [address] [place] [address] General Discharge Summary SEX: F AGE: 61 : 1955 ADMISSION DATE: 12/11/2016 DISCHARGE DATE: 12/16/2016 DIAGNOSES: 1. Bilateral lower lobe pneumonia, community acquired with chronic lung disease. 2. Chronic obstructive lung disease. 3. Whtsx-ez-bmokzxi respiratory failure. 4. Lung cancer, status post lobectomy. 5. Chronic hypertension. 6. Anxiety disorder. 7. Hyponatremia. 8. Sefys-kh-wzlsuez anemia secondary to chronic illness. 9. Positive sepsis screen with negative blood cultures. HISTORY OF PRESENT ILLNESS: Edna is a debilitated 61-year-old lady who has lung cancer and severe COPD. She was admitted with shortness of breath and found to be tachycardic. She did not have fever. She had elevated white count and tachycardia, elevated procalcitonin, and met sepsis criteria. She was given a fluid bolus in the emergency room and started on IV antibiotics in the emergency room. CT scan of the chest was done also and that showed bilateral lower lobe infiltrates. She has structural lung disease because of her COPD and is status post right lobectomy. Because of all of her chronic lung disease, she was started on Rocephin and Zithromax. She typically wears oxygen at home at 2 L and was requiring 4 L on admission. Also note that she had a blood transfusion as an outpatient 1 day prior to this admission. Hemoglobin on the second day after admission was 6.8, so she received another unit of blood. I also notified Oncology that she was admitted, and Dr. Ware saw her as well. On 12/12, she was alert, complained of mouth soreness. She has evidence of thrush, and we started her on nystatin. PT and OT saw the patient. Because of her worsening anemia, I did not use pharmacologic VTE prophylaxis. We used mechanical prophylaxis. On 12/13, the patient was given a dose of IV Venofer. I weaned her steroids. By 12/14, she was feeling better with increased exercise tolerance and able to wean her oxygen down to 3 L. White count was down to 18.9 from initially being over 30. Chest x-ray showed improvement. Her Zithromax was switched to an oral formula. Dr. Ware ordered vitamin B12 IM and made plans for her to follow up as an outpatient with Oncology. On 12/16, Edna was feeling back to baseline. She could ambulate with her oxygen, and oxygen saturations remained around 90%. At rest, O2 sats were between 95% to 98%. Hemoglobin was stable at 9.7 after her transfusion. She was dismissed home on 12/16/2016. ADMIT: 12/11/2016 RM/LOC: 410 [facility] MR#: [id number] [address] [place] [phone] SADE ARRIAZA [address] [place] [id number] General Discharge Summary SEX: F AGE: 61 : 1955 MEDICATIONS ON DISMISSAL: 1. Colace 100 mg twice a day. 2. Folic acid 1 mg daily. 3. Potassium 20 mEq b.i.d. 4. Megace 800 mg per 20 mL and she takes 20 mL daily. 5. MS Contin 60 mg p.o. b.i.d. 6. Mucinex 600 mg b.i.d. 7. Neurontin 300 mg t.i.d. 8. Nystatin suspension swish and swallow 4 times daily as needed for mouth soreness. 9. Norvasc 10 mg daily. 10.Protonix 40 mg daily. 11.Xanax 0.25 mg t.i.d. 12.Zithromax 500 mg daily for 5 more days. 13.Dulera 200/5 one puff b.i.d. and she can use her DuoNeb with the nebulizer every 4 hours until followup in the office. 14.She also has Percocet as needed every 4 hours, and she can use additional DuoNeb every 2 hours if needed. 15.She will continue her steroid taper 40 mg on the and and then prednisone 20 mg daily for three days, then 10 mg for three days, and then stop. She already has oxygen set up for home use. The patient was offered and declined flu shot on the day of dismissal. I will offer that to her again when she comes in for her followup visit. Liv Banegas MD/ laura JOB #: [id number] CC: Liv Banegas MD, Attending Physician Liv Banegas MD, Family Physician
[~2016-12-11 14:12] MED LIST changes: +CHANTIX0.5 MG PO; +CHANTIX1 MG PO; +COLACE-DPS100 MG PO; +DELTASONE DPS20 MG PO; +DULERA 200/58.8 GM IH; +DUONEB DPS3 ML IH; +DYCYCLOMINE PO; +MAALOX DPS30 ML PO; +MEGACE DPS800 MG/20 PO; +MORPHINE SULFAT60 M3 PO; +MS CONTIN DPS60 MG PO; +NICODERM CQ1 EAC2 TD; +OMNICEF DPS300 MG PO; +OXY-CONTIN10 MG PO; +PROAIR RESPICL90 MCG IH; +PROVENTIL HFA6.7 GM IH
--- NOTE | 2016-12-14 09:47 | ER ---
ADMIT: 12/11/2016 RM/LOC: 410 [facility] MR#: [id number] [address] [place] [phone] SADE ARRIAZA [address] [facility] [place] [address] Emergency Room Report SEX: F AGE: 61 : 1955 DATE: 12/11/2016 HISTORY OF PRESENT ILLNESS: Ms. Bishop is a 61-year-old female presents to the emergency room complaining of shortness of breath a week. She is tachycardic since last night. She says she has been having some phlegm for the last 2 days. She wears oxygen on and off, but has been having to wear more often. REVIEW OF SYSTEMS: Otherwise negative. PAST MEDICAL HISTORY: Includes hypertension, lung disease with COPD, heart failure, chronic pain, malnutrition, nicotine use and abuse, osteoporosis, pneumonia x3 now, lung cancer, chronic respiratory failure. She had a lobectomy of right lower lobe and left chest [id number]-[id number]. MEDICATIONS: See T-sheet. ALLERGIES: NONE. SOCIAL HISTORY: Continues to smoke. PHYSICAL EXAMINATION: VITAL SIGNS: Blood pressure 140/76, heart rate 120, respirations 20, temp is 98.1, and O2 sats 93%. GENERAL: Mildly anxious. HEENT: A normal dry oral mucosa. NECK: Supple. RESPIRATIONS: Decreased breath sounds. Decreased air movement. CVS: Tachycardic. ABDOMEN: Nontender. SKIN: Normal color, no rash, intact. EXTREMITIES: Well perfused. NEURO: Oriented x4. Mood and affect are appropriate. She just received a transfusion last week. Hemoglobin was 6.0 and today is 7.4. ADMIT: 12/11/2016 RM/LOC: 410 [facility] MR#: [id number] [address] [place] [address] [place] [phone] SADE ARRIAZA [facility] [place] [address] Emergency Room Report SEX: F AGE: 61 : 1955 LABS: Sepsis workup started with positive SIRS and now sepsis workup is done. White count 37.6, hemoglobin 7.4, platelets 518. Chemistry; sodium of 124, glucose 265. Lactic acid 2.5. Procalcitonin 32.66 with a BNP of 4166, glucose 300. Blood cultures pending. EKG, rate of 111, sinus tachycardia. CT chest shows bilateral lower lobe pneumonia which is not present on chest x- ray. IMPRESSION: Lobar pneumonia, bilateral; shortness of breath; congestive heart failure; hyponatremia; community-acquired pneumonia. Dr. Betancourt was contacted for orders. The patient has been given fluids at 125 mL an hour, and she is getting antibiotic in the form of ceftriaxone and azithromycin. YASMANY Whitaker / Golden Frank MD / modl JOB #: [id number] CC: Liv Banegas MD, Attending Physician Liv Banegas MD, Family Physician
[2016-12-17] MEDS ORDERED: DUONEB DPS3 ML IH (15:27)
[2016-12-17] MEDS ORDERED: HYDROCODON-ACE1 EAC6 PO (15:31)
[2016-12-17] MEDS ORDERED: MUCINEX600 MG PO (15:31)
[2016-12-17] MEDS ORDERED: NYSTATIN100000 UNI PO (15:33)
[2016-12-21] MEDS ORDERED: FLONASE 0.05% D16 GM NS (06:53)
== END 2016-12-16 13:20 | disposition home or self-care (01) | DRG 190 ==
LOC: ER 14:12 → 4PCU 18:18
PROVIDERS: ADMIT Family Medicine
PROC: 30233N1 Transfusion of Nonautologous Red Blood Cells into Peripheral Vein, Percutaneous Approach (ICD-10-PCS; principal; 2016-12-12)
DX: J44.0 Chronic obstructive pulmonary disease with (acute) lower respiratory infection (principal); J96.20 Acute and chronic respiratory failure, unspecified whether with hypoxia or hypercapnia; J18.9 Pneumonia, unspecified organism; R64 Cachexia; I11.0 Hypertensive heart disease with heart failure; B37.0 Candidal stomatitis; I50.9 Heart failure, unspecified; E87.1 Hypo-osmolality and hyponatremia; Z68.1 Body mass index [BMI] 19.9 or less, adult; D50.9 Iron deficiency anemia, unspecified; D51.3 Other dietary vitamin B12 deficiency anemia; E83.42 Hypomagnesemia; J44.1 Chronic obstructive pulmonary disease with (acute) exacerbation; F41.9 Anxiety disorder, unspecified; G89.29 Other chronic pain; D63.8 Anemia in other chronic diseases classified elsewhere; M81.0 Age-related osteoporosis without current pathological fracture; F41.1 Generalized anxiety disorder; K21.9 Gastro-esophageal reflux disease without esophagitis; Z87.891 Personal history of nicotine dependence; Z85.118 Personal history of other malignant neoplasm of bronchus and lung